=== PATIENT | female | born 1970 | race Caucasian/White ===

== ENCOUNTER → 2017-04-13 | Outpatient (CLI) | payer OTHER ==
--- NOTE | 2017-04-13 11:22 | Diagnostic Imaging Report ---
Bilateral renal ultrasound. INDICATION: Chronic kidney disease. FINDINGS: The right kidney is 11 CM with no hydronephrosis or focal lesion. There is an area of focal thinning in the renal cortex which could be related to scarring from prior infection or other insult. The left kidney is not seen. The urinary bladder is empty and is not seen. IMPRESSION: The left kidney is not seen. It could be severely atrophic, congenitally absent or ectopic. CT scan or MRI of the abdomen and pelvis can better evaluate. Dictated by: Dictated on workstation # [id number]
== END ==
LOC: RAD 09:45
PROVIDERS: ATTEND Internal Medicine Nephrology
DX: N18.3 Chronic kidney disease, stage 3 (moderate) (principal); E55.9 Vitamin D deficiency, unspecified; M06.9 Rheumatoid arthritis, unspecified
CPT/HCPCS: 76770

== ENCOUNTER → 2017-08-16 | Outpatient (CLI) | payer OTHER ==
--- NOTE | 2017-08-16 10:36 | Diagnostic Imaging Report ---
PROCEDURE: CT abdomen and pelvis without contrast. TECHNIQUE: Multiple contiguous axial images were obtained through the abdomen and pelvis without the use of intravenous contrast. INDICATION: Chronic kidney disease. Absent left kidney on ultrasound of 04/13/2017. FINDINGS: The lung bases appear clear. The liver, the spleen, the adrenal glands, and the pancreas appear unremarkable for unenhanced exam. The gallbladder is moderately distended with no calcified stones seen. No CT evidence of cholecystitis. There is severe atrophy of the left kidney with a 1 mm nonobstructive stone in the lower pole of the left kidney seen. No hydronephrosis on either side. The right kidney demonstrates irregularity of its lateral margin with thinning and lobulation of its inferior margin probably related to scarring from prior pyelonephritis. No stones or hydronephrosis. No ureteric stones. The uterus and adnexa appear grossly unremarkable. The abdominal aorta is normal in caliber. No para-aortic significantly enlarged lymph nodes seen. There is no fluid collection or free fluid noted in the abdomen or pelvis. Diverticulosis noted particularly prominent in the sigmoid colon with no evidence of diverticulitis. The appendix appears normal. The osseous structures demonstrate degenerative changes in the SI joints. IMPRESSION: 1. Severe atrophy of the left kidney. A 1 mm nonobstructive stone in the lower pole of the left kidney is seen. 2. Suggestion of cortical scarring in the right kidney likely sequela of prior infections. 3. Hydropic gallbladder with no calcified stones or CT evidence of cholecystitis. 4. Diverticulosis. No diverticulitis. Dictated by: Dictated on workstation # [id number]
== END ==
LOC: RAD 08:06
PROVIDERS: ATTEND Internal Medicine Nephrology
DX: N26.1 Atrophy of kidney (terminal) (principal); N20.0 Calculus of kidney; K82.1 Hydrops of gallbladder; K57.30 Diverticulosis of large intestine without perforation or abscess without bleeding; E55.9 Vitamin D deficiency, unspecified; E87.2 Acidosis
CPT/HCPCS: 74176